=== PATIENT | female | born 1950 | race Caucasian/White ===

== ENCOUNTER 2017-06-09 09:49 | Emergency (ER) | payer OTHER ==
[2017-06-09] MEDS: ALBUTEROL 0.5% (NEB) 2.5 MG/0.5 ML AMP INH (10:17)
[2017-06-09] MEDS ORDERED: ONDANSETRON 4 MG INJ (10:48)
[2017-06-09 10:52] LABS: ADD MAN DIFF? NO
[2017-06-09 10:56] LABS: BASOPHILS % 0.4 % (0.0-2.0); EOSINOPHILS % 0.5 % (0.0-7.0); HEMATOCRIT 45.3 % (37.0-47.0); HEMOGLOBIN 14.9 g/dl (12.0-16.0); LYMPHOCYTES # 0.7 10^3/ul (0.8-2.9); LYMPHOCYTES % 8.9 % (15.0-51.0); MEAN CORPUSCULAR HEMOGLOBIN 32.5 pg (29.0-33.0); MEAN CORPUSCULAR HGB CONC 32.9 g/dl (32.0-37.0); MEAN CORPUSCULAR VOLUME 98.7 fl (82.0-101.0); MEAN PLATELET VOLUME 9.8 fl (7.4-10.4); MONOCYTE # 0.6 10^3/ul (0.3-0.9); MONOCYTES % 8.8 % (0.0-11.0); NEUTROPHIL # 5.9 10^3/ul (1.6-7.5); NEUTROPHILS % 80.9 % (39.0-77.0); PLATELET COUNT 235 10^3/UL (140-415); RED BLOOD COUNT 4.59 10^6/ul (4.20-5.40); RED CELL DISTRIBUTION WIDTH 13.1 % (11.5-14.5)
[2017-06-09 10:56] LABS: WHITE BLOOD COUNT 7.3 10^3/ul (4.8-10.8)
[2017-06-09] MEDS: METHYLPREDNISOLONE 125 MG INJ IV (10:57)
[2017-06-09] MEDS: ONDANSETRON 4 MG INJ IV (10:57)
[2017-06-09 11:27] LABS: ANION GAP 16 (8-16); BLOOD UREA NITROGEN 13 mg/dl (7-20); CALCIUM 9.1 mg/dl (8.4-10.2); CARBON DIOXIDE 29 mmol/L (21-31); CHLORIDE 101 mmol/L (97-110); CREATININE 0.59 mg/dl (0.44-1.00); GLUCOSE 107 mg/dl (70-220); POTASSIUM 3.8 mmol/L (3.5-5.1); SODIUM 142 mmol/L (135-144)
== END 2017-06-09 15:41 | disposition short-term general hospital (02) ==
LOC: E/R 09:49
DX: J44.1 Chronic obstructive pulmonary disease with (acute) exacerbation (principal); R09.02 Hypoxemia; J40 Bronchitis, not specified as acute or chronic; J45.909 Unspecified asthma, uncomplicated; Z87.891 Personal history of nicotine dependence
CPT/HCPCS: 71045; 80048; 85025; 94644; 96374; 96375; 99285-25

== ENCOUNTER 2018-11-02 06:44 | Emergency (ER) | payer OTHER ==
[2018-11-02] MEDS: HYDROmorphONE 2 MG/ML SYG IM (07:16)
[2018-11-02] MEDS: KETOROLAC 30 MG INJ IM (07:19)
[2018-11-02] MEDS: ONDANSETRON (ODT) 4 MG TAB ODT (07:19)
== END 2018-11-02 09:32 | disposition home or self-care (01) ==
LOC: E/R 06:44
DX: M54.41 Lumbago with sciatica, right side (principal); J44.9 Chronic obstructive pulmonary disease, unspecified; I50.9 Heart failure, unspecified
CPT/HCPCS: 96372; 99284-25